=== PATIENT | male | born 1990 | race Caucasian/White ===

== ENCOUNTER 2020-12-02 13:16 | Emergency (ER) | payer SELFPAY ==
[~2020-12-02] VITALS: Ht 170.2 cm; Wt 93.0 kg
[2020-12-02 13:23] VITALS: BP 138/70
[2020-12-02] MEDS ORDERED: EMTR1TAB12 PO (14:27)
[2020-12-02] MEDS ORDERED: RALT400T PO (14:27)
[2020-12-02 14:56] VITALS: BP 138/70
--- NOTE | 2020-12-02 14:57 | NUR ---
Patient discharged with v/s stable. Written and verbal after care instructions given and explained. Patient alert, oriented and verbalized understanding of instructions. Ambulatory with steady gait. All questions addressed prior to discharge. ID band removed. Patient advised to follow up with PMD. Rx of KENZIE SPENCER given. Patient educated on indication of medication including possible reaction and side effects. Opportunity to ask questions provided and answered.
[2020-12-03 08:08] LABS: HEPATITIS B SURFACE ANTIGEN Negative (Negative)
== END 2020-12-02 14:57 | disposition home or self-care (01) ==
LOC: MED 13:16
DX: S61.439A Puncture wound without foreign body of unspecified hand, initial encounter (principal); W46.1XXA Contact with contaminated hypodermic needle, initial encounter; Y93.89 Activity, other specified; Y92.89 Other specified places as the place of occurrence of the external cause; Y99.8 Other external cause status
CPT/HCPCS: 36415; 86592; 86702; 86803; 87340; 99283